=== PATIENT | female | born 1995 | race Two or more races ===

== ENCOUNTER → 2024-07-28 | Outpatient (CLI) | payer MEDICAID, SELFPAY ==
--- NOTE | 2024-07-28 13:00 | XR_ITS ---
Examination: Pelvic ultrasound, transabdominal, complete Technique: Transabdominal ultrasound of the pelvis performed using grayscale imaging Date and time of exam: July 28, 2024 1328 hours INDICATIONS: Pelvic pain beginning 2 months ago FINDINGS: Uterus 8.6 cm endometrial stripe 0.5 cm No uterine mass or intrauterine gestation Right ovary 4.2 cm arterial flow 29 x 31 x 33 mm cyst Left ovary 3.0 cm arterial flow IMPRESSION: Right ovarian simple cyst 29 x 31 x 33 mm
--- NOTE | 2024-07-28 13:00 | XR_ITS ---
Examination: Abdomen sonogram, complete Date and time of exam: July 28, 2024 1338 hours. INDICATIONS: Abdominal pain beginning 2 months ago Technique: Multiple real-time grayscale transabdominal sonographic images of the abdomen have been obtained. Findings: Contracted gallbladder Common bile duct 0.5 cm Pancreatic head 2.8 cm Aorta not enlarged Liver 19.7 cm fatty infiltration Normal hepatopedal portal venous flow Patent IVC Right kidney 10.9 cm renal cortex 1.8 cm Left kidney 10.4 cm renal cortex 2.0 cm Spleen 11.4 cm IMPRESSION: Recommend repeating the gallbladder study with fasting Moderate hepatomegaly fatty liver
== END | disposition home or self-care (01) ==
LOC: CDIM 12:48
DX: N83.291 Other ovarian cyst, right side (principal); K76.0 Fatty (change of) liver, not elsewhere classified
CPT/HCPCS: 76700; 76856

== ENCOUNTER 2024-09-02 09:43 | Emergency (ER) | payer MEDICAID, SELFPAY ==
[2024-09-02 10:21] VITALS: BP 131/76; PULSE 74; RESP 17; TEMP 36.8; O2SAT 96
[2024-09-02 10:22] VITALS: BMI 44.0
--- NOTE | 2024-09-02 10:27 | EKG_ITS ---
[facility] (Formerly [facility]) Test Date: 2024-09-02 Pat Name: PAMELA RICHARDSON Department: Room: - Gender: Female Procedure Rn: : [id number] Requested By: David Frost (RUBBER DOWN) Order Number: [id number] Reading MD: David Frost (RUBBER DOWN) Measurements Intervals [place] Rate: 78 P: 32 WA: 155 QRS: -14 QRSD: 98 T: 2 QT: 364 QTc: 417 Interpretive Statements SINUS RHYTHM LOW QRS VOLTAGE IN PRECORDIAL LEADS [QRS DEFLECTION < 1.0 mV IN CHEST LEADS] No previous ECG available for comparison /store/S0/[id number].pdf
--- NOTE | 2024-09-02 10:47 | XR_ITS ---
Examination: PA lateral chest 2 views Technique: Upright PA lateral chest 2 views Exam date and time: September 03, 2019 0503 hrs. Indications: Shortness of breath chest pain today. Findings: Normal heart size. Lungs are clear. Osseous structures are intact. Impression: No active disease.
--- NOTE | 2024-09-02 11:25 | EDNOTE_ITS ---
<Statement entered by Tessie Pritchard MD - 09/03/24 17:07> As co-signing physician, I was present and available for consult prn. I concur with the plan and care as documented by the midlevel provider. ED Chest Pain RME/HPI General Chief Complaint: Chest Pain Stated Complaint: CHEST PAIN Time Seen by Provider: 09/02/24 09:46 Arrival date/time: 09/02/24 09:43 28-year-old female presents to the emergency department today along with 2 of her children or being seen as patients as well. Patient reports that she has a mild cough and chest pain Limitations: no limitations Related Data Home Medications ?Medication ?Instructions ?Recorded ?Confirmed vits no.124-ferrous fum 1 tab PO QDAY 2 02/18/22 27 mg iron-folic acid 800 mcg tablet ( Vitamin) Previous Rx's ?Medication ?Instructions ?Recorded ibuprofen 800 mg tablet 800 mg PO TID PRN pain #30 t abs 09/02/24 Allergies Allergy/AdvReac Type Severity Reaction Status Date / Time No Known Allergies Allergy Verified 11/19/23 21:51 Review of Systems Review of Systems Systems Reviewed: All systems reviewed, normal except as documented Constitutional Constitutional: Reports system reviewed and no additional complaints, except as documented, Denies fever(s) and Denies headache(s) Eyes Eyes: Reports system reviewed and no additional complaints, except as documented and Denies blurry vision ENT Ears, Nose, Mouth, and Throat: Reports system reviewed and no additional complaints, except as documented, Denies headache(s), Denies nasal congestion and Denies nasal discharge Cardiovascular Cardiovascular: Reports system reviewed and no additional complaints, except as documented, Reports chest pain and Denies dyspnea Respiratory Respiratory: Reports system reviewed and no additional complaints, except as documented, Denies chest congestion, Reports cough and Denies dyspnea Gastrointestinal Gastrointestinal: Reports system reviewed and no additional complaints, except as documented and Denies abdominal pain Integumentary/Breasts Skin/Breast: Reports system reviewed and no additional complaints, except as doc umented and Denies rash Neurologic Neurologic: Reports system reviewed and no additional complaints, except as documented, Reports as per HPI and Denies headache(s) Past Medical History Past Medical History NEUROLOGIC: Negative Neurological Disorders CARDIAC: Negative Cardiac Disorders, Myocardial Infarction, Cardiac Arrhythmia, Atrial Fibrillation, Angina, Heart Murmur, Coronary Artery Disease, Atherosclerotic Heart Disease, Peripheral Vascular Disease, Hypercholesterolemia, Aneurysm, Congestive Heart Failure, Congenital Heart Disease, Valvular Heart Disease, Rheumatic Fever, Cardiomyopathy, Edema, Pericarditis, Cellulitis, Deep Vein Thrombosis, Hypertension, Hypotension or Varicose Veins RESPIRATORY: Negative Chronic Obstructive Pulmonary Disease (COPD) GASTROINTESTINAL: Negative Gastrointestinal Disorders, Hepatitis or Colorectal Cancer GENITOURINARY: Negative Genitourinary Disorders, Renal Disease or Prostate Cancer REPRODUCTIVE: Positive Previous Pregnancies; Negative Breast Cancer, Pelvic Inflammatory Disease or Testicular Cancer MUSCULOSKELETAL: Negative Musculoskeletal Disorders or Bone Cancer ENT: Negative Cataracts, Glaucoma, Blind, Macular Degeneration, Ear Infection, Deafness or Eye Prosthesis ENDOCRINE: Negative Endocrine Disorders, Diabetes Mellitus Type 1, Diabetes Mellitus Type 2, Hypoglycemia, Tea's Syndrome, Montrell's Disease, Hyperthyroidism, Hypothyroidism, Parathyroid Disease, Pituitary Disease, Systemic Lupus Erythematosus, Syndrome of Inappropriate Antidiuretic Hormone (SIADH), Adrenal Disease or Graves' Disease HEMATOLOGIC: Negative Blood Disorders OTHER HISTORY: Negative Hospitalization, Autoimmune Disease, Down Syndrome, Developmental Delay, Shingles, Falls, Blood Transfusions, Blood Transfusion Reaction, Anesthesia Reactions, Organ Transplant, Chemotherapy, Radiation Therapy, Hyperbaric Therapy, MRSA, VRSA, Vancomycin-Resistant Enterococci, Human Immunodeficiency Virus (HIV), Chicken Pox, Measles, Mumps, Rubella (Palauan Measles), Pertussis, Clostridium Difficile, Breast Cancer, Cervical Cancer, Colorectal Cancer, Lung Cancer, Ovarian Cancer, Prostate Cancer or Testicular Cancer Family History FAMILY HISTORY: Negative Family Psychiatric Problems, Family Respiratory Disorders, Family Cardiac Disorders, Family Gastrointestinal Problems, Family Cancer, Family Surgery or Family Anesthesia Reaction Surgical History SURGICAL: Negative Pacemaker, Section or Organ Transplant Social History SMOKING STATUS: Never smoker SECOND HAND EXPOSURE: No ED Exam General Limitations: Present no limitations General appearance: Present alert and in no apparent distress Head Head exam: Present atraumatic Eye Eye exam: Present normal appearance, PERRL and EOMI ENT ENT exam: Present normal exam, normal oropharynx and mucous membranes moist Neck Neck exam: Present normal inspection, full ROM and trachea midline Chest Chest inspection: Present normal inspection and symmetric chest wall rise Respiratory Respiratory exam: Present normal lung sounds bilaterally Cardiovascular Cardiovascular exam: Present regular rate, normal rhythm and normal heart sounds Abdominal Exam Abdominal exam: Present soft and normal bowel sounds Extremities Exam Extremities exam: Present normal inspection and full ROM Back Exam Back exam: Present normal inspection and full ROM Neurological Exam Neurological exam: Present alert, oriented X3 and CN II-XII intact Psychiatric Psychiatric exam: Present normal affect and normal mood Skin Skin exam: Present warm, dry, intact and normal color Course Quality Measures none Orders Category Date Time Status EKG (ED ONLY) *Do not use* NOW Care 09/02/24 10:27 Completed EKG (ED Only) Stat Exams 09/02/24 10:27 Draft XR chest 2V Stat Exams 09/02/24 10:47 Completed Vital Signs Vital signs: Vital Signs Temperature 98.3 F 09/02/24 10:21 Pulse Rate 74 09/02/24 10:21 Respiratory Rate 17 09/02/24 10:21 Blood Pressure 131/76 H 09/02/24 10:21 Pulse Oximetry (%) 96 09/02/24 10:21 Oxygen Delivery Method Room Air 09/02/24 10:21 O2 saturation 96% room air within normal limits Procedures -ED EKG Interpretation #1: Date of EK09/02/24 Time of EK:47 Rate: 78 Interpretation: Interpreted by me EKG Impression: Normal sinus rhythm, No acute ST-T changes, No ectopy, No ischemic changes, Normal QRS, Normal intervals and Normal axis Chest Pain MDM Narrative MDM Narrative:: 28-year-old female presents to the emergency department today along with 2 of her children or being seen as patients as well. Patient reports that she has a mild cough and chest pain On exam patient well-appearing patient does not appear ill or toxic and in no acute distress Imaging obtained no acute emergent findings noted EKG obtained no acute emergent findings noted Patient discharged home in no distress to follow-up with primary care doctor in the next 24 to 48 hours and for any worsening symptoms to return to the ER immediately Patient data External records reviewed:: [facility] previous records Clinical information provided by:: patient Social determinants that could affect healthcare access:: none Patient has the following chronic illnesses:: None How is presenting disease/condition affected by chronic disease/condition?: no chronic disease Evaluation data The following diagnostics were reviewed and interpreted by me:: radiology exam(s) and EKG tracing(s) Lab and/or radiology exams considered but not ordered:: Radiology and EKG obtained Interpretation Summary: Reviewed by me Medications / Prescriptions Medications or Prescriptions considered but not ordered:: Given Medication administrations:: Given Consultations Consultation(s) initiated? (list below): No Diagnosis Chest Pain Differential Diagnosis: pneumothorax, stable angina, atypical chest pain, costochondritis and chest pain Most likely diagnosis given after review of the tests above:: Chest pain noncardiac Admission Indicated Admission indicated?: not indicated Admission Request Was there a request for admission?: No Disposition Plan Disposition Plan: Discharge Discharge Attestation Discharge Attestation: The patient and all family members were given an opportunity to ask questions and understood the discharge instructions. Discharge instructions specifically effects, indications for sooner follow up or return to the emergency department, and the expected course of current diagnosis. Patient condition: Stable Discharge Plan Plan Patient Disposition: HOME (Self Care) Disposition Comment: Stable Prescriptions/Referrals Prescriptions/Med Rec: New ibuprofen 800 mg tablet 800 mg PO TID PRN (Reason: pain) Qty: 30 0RF No Action Vitamin 27 mg iron- 800 mcg Tablet 1 tab PO QDAY Referrals: Rainer Evans MD [Primary Care Provider] - In 1 week Problem List Clinical Impression: Atypical chest pain Patient/Caregiver Discharge Instructions Education Materials: ED Chest Pain, Noncardiac Additional Instructions: Please follow up with your primary care doctor in the next 24-48hrs for any worsening symptoms return here immediately Print Language: English Stand Alone Forms: Dang Award Info., Patient Portal Info Letter PA/COBBLER UPPER Supervising Physician PA/COBBLER UPPER Supervising Physician: Dr. PRITCHARD
[2024-09-02 12:45] VITALS: BP 135/81; PULSE 67; RESP 18; TEMP 36.8; O2SAT 100
== END 2024-09-02 13:03 | disposition home or self-care (01) ==
PROVIDERS: Emergency Provider Emergency Medicine; PCP Pediatrics
DX: R07.89 Other chest pain (principal); R06.02 Shortness of breath; R05.9 Cough, unspecified; R94.31 Abnormal electrocardiogram [ECG] [EKG]
CPT/HCPCS: 71046; 93005; 99283

== ENCOUNTER 2025-04-27 20:49 | Emergency (ER) | payer MEDICAID, SELFPAY ==
[2025-04-27 21:03] VITALS: BP 140/68; PULSE 84; RESP 19; TEMP 36.6; O2SAT 97; BMI 40.6
--- NOTE | 2025-04-27 21:09 | XR_ITS ---
Examination: Abdomen sonogram, Limited Date and time of exam: April 27, 2025, 10 0 7:00 p.m. INDICATIONS: Abdominal pain beginning 6 days ago Technique: Real-time woody scale transabdominal sonographic images of the upper abdomen obtained. Findings: Contracted gallbladder no stones Common bile duct 0.3 cm Pancreatic head 3.8 cm Liver 17.0 cm fatty infiltration Normal hepatopetal portal venous flow Patent IVC IMPRESSION: Contracted gallbladder, no gallstones Normal common bile duct Prominent pancreatic head, clinical correlation advised
[2025-04-27 21:46] LABS: Basophils # (Auto) 0.0 Thou/mm3 (0.0-0.2); Basophils % (Auto) 0 % (0-2.5); Eosinophils # (Auto) 0.1 Thou/mm3 (0.0-0.5); Eosinophils % (Auto) 1 % (0-10); Hematocrit 41.5 % (36.0-46.0); Hemoglobin 14.2 g/dL (12.0-16.0); Immature Granulocytes Auto 0.04 Thou/mm3 (0.00-0.00); Lymphocytes # (Auto) 5.2 Thou/mm3 (1.0-4.8); Lymphocytes % (Auto) 38 % (10-50); Mean Corpuscular HGB Conc 34.2 g/dl (31.0-37.0); Mean Corpuscular Hemoglobin 29.5 pg (25.0-35.0); Mean Corpuscular Volume 86 fL (80-100); Monocytes # (Auto) 0.9 Thou/mm3 (0.0-0.8); Monocytes % (Auto) 7 % (0-12); Neutrophils # (Auto) 7.2 Thou/mm3 (1.8-7.7); Neutrophils % (Auto) 54 % (37-80); Nucleated Red Blood Cell # 0.00 Thou/mm3 (0.00-0.00); Nucleated Red Blood Cell % 0 /100 WBC (0); Platelet Count 330 Thou/mm3 (140-440); RDW Standard Deviation 37.3 fL (36.4-46.3); Red Blood Count 4.82 Miln/mm3 (4.00-5.20); White Blood Count 13.4 Thou/mm3 (3.6-11.0)
[2025-04-27 22:02] LABS: Collection Type, Urine Clean Catch
[2025-04-27 22:09] LABS: Alanine Aminotransferase 21 U/L (10-49); Albumin, Serum 4.7 gm/dL (3.5-5.0); Albumin/Globulin Ratio 1.5 (1.2-2.2); Alkaline Phosphatase 107 U/L (46-116); Anion Gap 9 (7-16); Aspartate Amino Transferase 25 U/L (0-34); BUN/Creatinine Ratio 13 Ratio (12-20); Bilirubin,Total 0.7 mg/dL (0.3-1.2); Blood Urea Nitrogen 9 mg/dL (9-23); Calcium 9.5 mg/dL (8.3-10.6); Calcium (Corrected) 9.5 mg/dL (8.5-10.1); Carbon Dioxide 26.6 mMol/L (20.0-31.0); Chloride 107 mMol/L (98-107); Creatinine (Component) 0.7 mg/dL (0.6-1.3); Estimated Creatinine Clearance 131.7 mL/min (>60); Globulin 3.1 gm/dL (2.3-3.5); Glucose 120 mg/dL (74-106); Lipase 32 U/L (12-53); Osmolality,Calculated 284 (275-295); Potassium 3.7 mMol/L (3.4-5.1); Sodium 143 mMol/L (136-145); Total Protein 7.8 gm/dL (5.7-8.2); eGFR > 60 See Note
[2025-04-27 22:09] LABS: HCG Qualitative,Urine Negative
[2025-04-27 22:11] LABS: Amorphous Crystals,Urine Present (Absent); Bacteria,Urine Rare; Bilirubin,Urine Negative (Negative); Blood,Urine Trace (Negative); Clarity,Urine Clear (Clear/Hazy); Color,Urine Yellow (Lt Yel-Yel); Glucose, Urine Negative (Negative); Ketones,Urine Negative (Negative); Leukocyte Esterase,Urine Positive (Negative); Nitrite,Urine Negative (Negative); PH,Urine 5.5 (5.0-7.0); Protein,Urine Negative (Neg - Trace); RBC,Urine 3 /hpf (0-3); Specific Gravity,Urine 1.031 (1.001-1.035); Squamous Epithelial Cell,Urine 3 /hpf (0-5); Urobilinogen,Urine Negative mg/dL (0.0-1.0); WBC,Urine 1 /hpf (0-5)
[2025-04-27 23:31] LABS: Amylase 32 U/L (30-118)
--- NOTE | 2025-04-28 00:06 | PD.EDABDPN ---
ED Abdominal Pain RME/HPI General Chief Complaint: Abdominal Pain Stated complaint: RIGHT UPPER ABD PAIN Time seen by provider: 04/27/25 21:04 Arrival date/time: 04/27/25 20:49 This is a case of 29-year-old female with history of gastritis and fatty liver and diabetes came in in the emergency room due to right upper abdominal pain radiating to the right flank for 5 days associated with nausea vomiting no injury noted no trauma persistence of the symptoms this patient decided to sought consult here in the emergency room Limitations: no limitations Related Data Home Medications ?Medication ?Instructions ?Recorded ?Confirmed vits no.[id number]-ferrous fum 1 tab PO QDAY 02/18/22 02/18/22 27 mg iron-folic acid 800 mcg tablet ( Vitamin) Previous Rx's ?Medication ?Instructions ?Recorded ibuprofen 800 mg tablet 800 mg PO TID PRN pain #30 tabs 09/02/24 cephalexin 500 mg capsule 500 mg PO TID #30 caps 04/28/25 hydrocodone 5 mg-acetaminophen 325 1 tab PO Q6H PRN pain #12 tabs 04/28/25 mg tablet ondansetron 4 mg disintegrating 4 mg PO Q8H #20 tabs 04/28/25 tablet Allergies Allergy/AdvReac Type Severity Reaction Status Date / Time No Known Allergies Allergy Verified 04/27/25 20:50 Review of Systems Review of Systems Systems Reviewed: All systems reviewed, normal except as documented Constitutional Constitutional: Reports system reviewed and no additional complaints, except as documented and Reports as per HPI ENT Ears, Nose, Mouth, and Throat: Denies dysphagia and Denies odynophagia Cardiovascular Cardiovascular: Reports system reviewed and no additional complaints, except as documented and Reports as per HPI Respiratory Respiratory: Reports system reviewed and no additional complaints, except as documented and Reports as per HPI Gastrointestinal Gastrointestinal: Reports system reviewed and no additional complaints, except as documented, Reports as per HPI, Reports abdominal pain, Denies belching, Denies bloating, Denies change in bowel habits, Denies change in stool character, Denies coffee ground emesis, Denies constipation, Denies cramping, Denies diarrhea, Denies dyspepsia, Denies dysphagia, Denies early satiety, Denies excessive flatus, Denies fecal incontinence, Denies heartburn, Denies hematemesis, Denies hematochezia, Denies loose stools, Denies melena, Reports nausea, Denies odynophagia, Denies tenesmus and Reports vomiting Neurologic Neurologic: Reports system reviewed and no additional complaints, except as documented and Reports as per HPI Past Medical History Past Medical History NEUROLOGIC: Negative Neurological Disorders CARDIAC: Negative Cardiac Disorders, Myocardial Infarction, Cardiac Arrhythmia, Atrial Fibrillation, Angina, Heart Murmur, Coronary Artery Disease, Atherosclerotic Heart Disease, Peripheral Vascular Disease, Hypercholesterolemia, Aneurysm, Congestive Heart Failure, Congenital Heart Disease, Valvular Heart Disease, Rheumatic Fever, Cardiomyopathy, Edema, Pericarditis, Cellulitis, Deep Vein Thrombosis, Hypertension, Hypotension or Varicose Veins RESPIRATORY: Negative Chronic Obstructive Pulmonary Disease (COPD) GASTROINTESTINAL: Negative Gastrointestinal Disorders, Hepatitis or Colorectal Cancer GENITOURINARY: Negative Genitourinary Disorders, Renal Disease or Prostate Cancer REPRODUCTIVE: Positive Previous Pregnancies; Negative Breast Cancer, Pelvic Inflammatory Disease or Testicular Cancer MUSCULOSKELETAL: Negative Musculoskeletal Disorders or Bone Cancer ENT: Negative Cataracts, Glaucoma, Blind, Macular Degeneration, Ear Infection, Deafness or Eye Prosthesis ENDOCRINE: Negative Endocrine Disorders, Diabetes Mellitus Type 1, Diabetes Mellitus Type 2, Hypoglycemia, [place]'s Syndrome, [place]'s Disease, Hyperthyroidism, Hypothyroidism, Parathyroid Disease, Pituitary Disease, Systemic Lupus Erythematosus, Syndrome of Inappropriate Antidiuretic Hormone (SIADH), Adrenal Disease or Graves' Disease HEMATOLOGIC: Negative Blood Disorders OTHER HISTORY: Negative Hospitalization, Autoimmune Disease, Down Syndrome, Developmental Delay, Shingles, Falls, Blood Transfusions, Blood Transfusion Reaction, Anesthesia Reactions, Organ Transplant, Chemotherapy, Radiation Therapy, Hyperbaric Therapy, MRSA, VRSA, Vancomycin-Resistant Enterococci, Human Immunodeficiency Virus (HIV), Chicken Pox, Measles, Mumps, Rubella (Vietnamese Measles), Pertussis, Clostridium Difficile, Breast Cancer, Cervical Cancer, Colorectal Cancer, Lung Cancer, Ovarian Cancer, Prostate Cancer or Testicular Cancer Family History FAMILY HISTORY: Negative Family Psychiatric Problems, Family Respiratory Disorders, Family Cardiac Disorders, Family Gastrointestinal Problems, Family Cancer, Family Surgery or Family Anesthesia Reaction Surgical History SURGICAL: Negative Pacemaker, Section or Organ Transplant Social History SMOKING STATUS: Never smoker SECOND HAND EXPOSURE: No ED Exam General Limitations: Present no limitations General appearance: Present alert, in no apparent distress and other (Patient is awake alert oriented not in distress nontoxic looking well-hydrated well-nourished) Head Head exam: Present atraumatic, normocephalic and normal inspection Eye Eye exam: Present normal appearance, PERRL and EOMI ENT ENT exam: Present normal exam, normal oropharynx and mucous membranes moist Neck Neck exam: Present normal inspection, full ROM and trachea midline; Absent tenderness, meningismus, lymphadenopathy or thyromegaly Chest Chest inspection: Present normal inspection and symmetric chest wall rise; Absent tenderness Respiratory Respiratory exam: Present normal lung sounds bilaterally and other (No rhonchi no rales); Absent respiratory distress, wheezes, stridor, accessory muscle use or prolonged expiratory phase Cardiovascular Cardiovascular exam: Present regular rate, normal rhythm and normal heart sounds; Absent bradycardia, tachycardia, irregular rhythm, systolic murmur, diastolic murmur or clicks Abdominal Exam Abdominal exam: Present soft, tenderness (Mild tenderness on the right upper quadrant right flank but no CVA tenderness bladder is not distended not tender) and normal bowel sounds; Absent distention, guarding, rebound, rigidity, diminished bowel sounds, hyperactive bowel sounds, hypoactive bowel sounds, organomegaly, psoas sign, obturator sign, heel tap sign, Pandya's sign, Rovsing's sign, tenderness at McBurney's Point or ascites Extremities Exam Extremities exam: Present normal inspection and full ROM Back Exam Back exam: Present normal inspection and full ROM Neurological Exam Neurological exam: Present alert, oriented X3, CN II-XII intact, normal gait and reflexes normal; Absent motor sensory deficit Psychiatric Psychiatric exam: Present normal affect and normal mood Skin Skin exam: Present warm, dry, intact, normal color and other (Excellent skin turgor) Course Quality Measures none Orders Category Date Time Status US gall bladder Stat Exams 04/27/25 21:09 Completed Amylase Stat Lab 04/27/25 21:34 Completed CBC Stat Lab 04/27/25 21:34 Completed Comprehensive Metabolic Panel Stat Lab 04/27/25 21:34 Completed HCG Qualitative,Urine Stat Lab 04/27/25 21:50 Completed Lipase Stat Lab 04/27/25 21:34 Completed Urinalysis Stat Lab 04/27/25 21:50 Completed HYDROcodone*/APAP 5/325 [[place] 5/325] Med 04/27/25 23:58 Discontinued 1 tab PO X1 ONE Ondansetron Odt [Zofran Odt] Med 04/27/25 23:58 Discontinued 4 mg PO X1 ONE Vital Signs Vital signs: Vital Signs Temperature 97.8 F 04/27/25 21:03 Pulse Rate 84 04/27/25 21:03 Respiratory Rate 19 04/27/25 21:03 Blood Pressure 140/68 H 04/27/25 21:03 Pulse Oximetry (%) 97 04/27/25 21:03 Oxygen Delivery Method Room Air 04/27/25 21:03 Oxygen saturation is 97% in room air Abdominal Pain MDM MDM Narrative MDM Narrative:: This is a case of 29-year-old female with history of gastritis and fatty liver and diabetes came in in the emergency room due to right upper abdominal pain radiating to the right flank for 5 days associated with nausea vomiting no injury noted no trauma persistence of the symptoms this patient decided to sought consult here in the emergency room physical examination patient is awake alert oriented not in distress nontoxic looking moderate tenderness on the right upper quadrant and right flank but no CVA tenderness no guarding no rebound no rigidity negative psoas negative straight or negative Rovsing's negative Ovide's negative obesity negative CVA tenderness excellent skin turgor the rest of the physical examination neurological exam is normal and unremarkable blood test showed leukocytosis with WBC of 13 to no anemia kidney and liver function is normal lipase and amylase is normal urinalysis showed WBCs and urine suggestive of urinary tract infection ultrasound of the gallbladder were normal based on my physical examination and history patient abdominal pain is due to urinary tract patient was discharged with cephalexin for UTI [place] for pain Zofran for nausea vomiting for any worsening symptoms or any emergent concern return precaution in the ER is advised she will also follow-up with PCP in 2 days for reevaluation Patient was discharged with comfortable condition walking with stable gait. Patient verbalized no further complains explained diagnosis and answered patient question. Patient is comfortable with the proposed management plan including the need to follow up with his/her primary care physician and any specialist if applicable Discussed patient for any urgent condition or worsening sx, He/She needed to go to emergency room immediately or call 911. Patient acknowledge the responsibility to follow up as instructed and to monitor her/his symptoms. For any persistence of the symptoms for more than 3-5 days return precaution advised. Discussed the result of the test and was given printed discharge instruction Patient data External records reviewed:: [facility] previous records Clinical information provided by:: patient Social determinants that could affect healthcare access:: none Patient has the following chronic illnesses:: None How is presenting disease/condition affected by chronic disease/condition?: no chronic disease Evaluation data The following diagnostics were reviewed and interpreted by me:: lab results and radiology exam(s) Lab and/or radiology exams considered but not ordered:: Reviewed Interpretation Summary: Reviewed Medications / Prescriptions Medications or Prescriptions considered but not ordered:: Given Medication administrations:: Medication Administration History Discontinued Medications Hydrocodone Bitart/Acetaminophen (Hydrocodone/[place] 5/325 Tablet) 1 tab PO X1 ONE Stop: 04/27/25 23:59 Ondansetron HCl (Ondansetron Odt 4 Mg Tabrap) 4 mg PO X1 ONE; Protocol Stop: 04/27/25 23:59 Given Consultations Consultation(s) initiated? (list below): No Diagnosis Differential diagnosis abdominal pain: abdominal pain, calculus of kidney, gastroenteritis, pancreatitis and other (Cholelithiasis) Most likely diagnosis given after review of the tests above:: Urinary tract infection Admission Indicated Admission indicated?: not indicated Explain why admission is indicated or not indicated:: not indicated Admission Request Was there a request for admission?: No Admission Attestation Admission request attestation: not indicated Disposition Plan Disposition Plan: Discharge Discharge Attestation Discharge Attestation: The patient and all family members were given an opportunity to ask questions and understood the discharge instructions. Discharge instructions specifically effects, indications for sooner follow up or return to the emergency department, and the expected course of current diagnosis. Patient condition: Stable Discharge Plan Plan Patient Disposition: HOME (Self Care) Patient condition on transfer: Stable Prescriptions/Referrals Prescriptions/Med Rec: New cephalexin 500 mg capsule 500 mg PO TID Qty: 30 0RF ondansetron 4 mg tablet,disintegrating 4 mg PO Q8H Qty: 20 0RF hydrocodone-acetaminophen 5-325 mg tablet 1 tab PO Q6H MDD max 4 tabs per day PRN (Reason: pain) Qty: 12 0RF No Action Vitamin 27 mg iron- 800 mcg Tablet 1 tab PO QDAY ibuprofen 800 mg tablet 800 mg PO TID PRN (Reason: pain) Qty: 30 0RF Referrals: Dionne Connolly NP [Primary Care Provider] - In 1 week Problem List Clinical Impression: Abdominal pain, Urinary tract infection Patient/Caregiver Discharge Instructions Education Materials: Abdominal Pain, Urinary Tract Infections in Women Additional Instructions: Follow-up with your primary care physician in 2 days for reevaluation regarding persistent worsening symptoms or any emergent concern call 911 or go to the nearest emergency room take your medication as directed finish the course of antibiotic increase water intake keep hydrated Pedialyte Gatorade for hydration is advsied Print Language: Portuguese Stand Alone Forms: Dang Award Info., Patient Portal Info Letter 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
[2025-04-28] MEDS: HYDROcodone/APAP 5/325 TABLET 1 TAB PO (00:25)
[2025-04-28] MEDS: ONDANSETRON ODT 4 MG TABRAP PO (00:25)
[2025-04-28 00:26] VITALS: RESP 16
[2025-04-28 01:07] LABS: Path Review Blood Smear Sent to Pathologist
== END 2025-04-28 00:27 | disposition home or self-care (01) ==
PROVIDERS: Nurse Practitioner Family; Emergency Provider Emergency Medicine; PCP Nurse Practitioner Family
DX: N39.0 Urinary tract infection, site not specified (principal); R10.11 Right upper quadrant pain; R11.2 Nausea with vomiting, unspecified
CPT/HCPCS: 36415; 76705; 80053; 81001; 81025; 82150; 83690; 85025; 99283; Q0162; A9270

== ENCOUNTER 2025-04-30 08:42 | Emergency (ER) | payer MEDICAID, SELFPAY ==
[2025-04-30 08:57] VITALS: BP 122/83; PULSE 85; RESP 18; TEMP 36.9; O2SAT 96
--- NOTE | 2025-04-30 09:01 | XR_ITS ---
EXAMINATION: PA lateral chest 2 views TECHNIQUE: Upright PA lateral chest 2 views Date and time: April 30, 2025, 0914 hours INDICATIONS: Coughing congestion 3 days. FINDINGS: Normal heart size. Lungs are clear. Osseous structures intact. IMPRESSION: No active disease
[2025-04-30 09:30] LABS: Strep A Rapid Negative (Negative)
[2025-04-30 09:30] LABS: COVID-19 Antigen (In-House) Negative (Negative)
--- NOTE | 2025-04-30 10:57 | PD.EDURI ---
Upper Respiratory Inf. RME/HPI General Chief Complaint: Flu Like Symptoms Stated Complaint: cough Time Seen by Provider: 04/30/25 08:43 Arrival date/time: 04/30/25 08:42 29-year-old female presents to the Emergency Department for complaint of sore throat cough and congestion ongoing for last couple of days patient reports no chance of Limitations: no limitations Related Data Home Medications ?Medication ?Instructions ?Recorded ?Confirmed vits no.124-ferrous fum 1 tab PO QDAY 02/18/22 02/18/22 27 mg iron-folic acid 800 mcg tablet ( Vitamin) Previous Rx's ?Medication ?Instructions ?Recorded ibuprofen 800 mg tablet 800 mg PO TID PRN pain #30 tabs 09/02/24 cephalexin 500 mg capsule 500 mg PO TID #30 caps 04/28/25 hydrocodone 5 mg-acetaminophen 325 1 tab PO Q6H PRN pain #12 tabs 04/28/25 mg tablet ondansetron 4 mg disintegrating 4 mg PO Q8H #20 tabs 04/28/25 tablet Ventolin HFA 90 mcg/actuation 2 puff inhalation Q6H PRN 04/30/25 aerosol inhaler (albuterol sulfate) shortness of breath or wheezing #18 grams benzonatate 100 mg capsule 100 mg PO TID #14 caps 04/30/25 prednisone 10 mg tablet 30 mg (3 x 10 mg) PO BID 3 days 04/30/25 #18 tabs Allergies Allergy/AdvReac Type Severity Reaction Status Date / Time No Known Allergies Allergy Verified 04/30/25 08:45 Review of Systems Review of Systems Systems Reviewed: All systems reviewed, normal except as documented Constitutional Constitutional: Reports system reviewed and no additional complaints, except as documented, Denies fever(s) and Denies headache(s) Eyes Eyes: Reports system reviewed and no additional complaints, except as documented and Denies blurry vision ENT Ears, Nose, Mouth, and Throat: Reports system reviewed and no additional complaints, except as documented, Denies headache(s), Denies nasal congestion, Denies nasal discharge and Reports sore throat Cardiovascular Cardiovascular: Reports system reviewed and no additional complaints, except as documented, Denies chest pain and Denies dyspnea Respiratory Respiratory: Reports system reviewed and no additional complaints, except as documented, Reports chest congestion, Reports cough and Denies dyspnea Gastrointestinal Gastrointestinal: Reports system reviewed and no additional complaints, except as documented and Denies abdominal pain Integumentary/Breasts Skin/Breast: Reports system reviewed and no additional complaints, except as documented and Denies rash Neurologic Neurologic: Reports system reviewed and no additional complaints, except as documented, Reports as per HPI and Denies headache(s) Past Medical History Past Medical History NEUROLOGIC: Negative Neurological Disorders CARDIAC: Negative Cardiac Disorders, Myocardial Infarction, Cardiac Arrhythmia, Atrial Fibrillation, Angina, Heart Murmur, Coronary Artery Disease, Atherosclerotic Heart Disease, Peripheral Vascular Disease, Hypercholesterolemia, Aneurysm, Congestive Heart Failure, Congenital Heart Disease, Valvular Heart Disease, Rheumatic Fever, Cardiomyopathy, Edema, Pericarditis, Cellulitis, Deep Vein Thrombosis, Hypertension, Hypotension or Varicose Veins RESPIRATORY: Negative Chronic Obstructive Pulmonary Disease (COPD) GASTROINTESTINAL: Negative Gastrointestinal Disorders, Hepatitis or Colorectal Cancer GENITOURINARY: Negative Genitourinary Disorders, Renal Disease or Prostate Cancer REPRODUCTIVE: Positive Previous Pregnancies; Negative Breast Cancer, Pelvic Inflammatory Disease or Testicular Cancer MUSCULOSKELETAL: Negative Musculoskeletal Disorders or Bone Cancer ENT: Negative Cataracts, Glaucoma, Blind, Macular Degeneration, Ear Infection, Deafness or Eye Prosthesis ENDOCRINE: Negative Endocrine Disorders, Diabetes Mellitus Type 1, Diabetes Mellitus Type 2, Hypoglycemia, [place]'s Syndrome, [place]'s Disease, Hyperthyroidism, Hypothyroidism, Parathyroid Disease, Pituitary Disease, Systemic Lupus Erythematosus, Syndrome of Inappropriate Antidiuretic Hormone (SIADH), Adrenal Disease or Graves' Disease HEMATOLOGIC: Negative Blood Disorders OTHER HISTORY: Negative Hospitalization, Autoimmune Disease, Down Syndrome, Developmental Delay, Shingles, Falls, Blood Transfusions, Blood Transfusion Reaction, Anesthesia Reactions, Organ Transplant, Chemotherapy, Radiation Therapy, Hyperbaric Therapy, MRSA, VRSA, Vancomycin-Resistant Enterococci, Human Immunodeficiency Virus (HIV), Chicken Pox, Measles, Mumps, Rubella (N[place]ali Measles), Pertussis, Clostridium Difficile, Breast Cancer, Cervical Cancer, Colorectal Cancer, Lung Cancer, Ovarian Cancer, Prostate Cancer or Testicular Cancer Family History FAMILY HISTORY: Negative Family Psychiatric Problems, Family Respiratory Disorders, Family Cardiac Disorders, Family Gastrointestinal Problems, Family Cancer, Family Surgery or Family Anesthesia Reaction Surgical History SURGICAL: Negative Pacemaker, Section or Organ Transplant Social History SMOKING STATUS: Never smoker SECOND HAND EXPOSURE: No ED Exam General Limitations: Present no limitations General appearance: Present alert and in no apparent distress Head Head exam: Present atraumatic, normocephalic and normal inspection Eye Eye exam: Present normal appearance, PERRL and EOMI; Absent conjunctival injection ENT ENT exam: Present normal exam, normal oropharynx and mucous membranes moist Neck Neck exam: Present normal inspection, full ROM and trachea midline Chest Chest inspection: Present normal inspection and symmetric chest wall rise Respiratory Respiratory exam: Present normal lung sounds bilaterally; Absent respiratory distress Cardiovascular Cardiovascular exam: Present regular rate, normal rhythm and normal heart sounds Abdominal Exam Abdominal exam: Present soft and normal bowel sounds; Absent distention, tenderness, guarding, rebound or rigidity Extremities Exam Extremities exam: Present normal inspection and full ROM Back Exam Back exam: Present normal inspection and full ROM Neurological Exam Neurological exam: Present alert, oriented X3 and CN II-XII intact Psychiatric Psychiatric exam: Present normal affect and normal mood Skin Skin exam: Present warm, dry, intact and normal color Course Quality Measures none Orders Category Date Time Status XR chest 2V Stat Exams 04/30/25 09:01 Completed COVID-19 Antigen (In-House) Stat Lab 04/30/25 09:04 Completed Strep A Rapid Stat Lab 04/30/25 09:06 Completed Vital Signs Vital signs: Vital Signs Temperature 98.5 F 04/30/25 08:57 Pulse Rate 85 04/30/25 08:57 Respiratory Rate 18 04/30/25 08:57 Blood Pressure 122/83 04/30/25 08:57 Pulse Oximetry (%) 96 04/30/25 08:57 Oxygen Delivery Method Room Air 04/30/25 08:57 O2 saturation 96% room air with normal Upper Respiratory Infection MDM Narrative MDM Narrative:: 29-year-old female presents to the Emergency Department for complaint of sore throat cough and congestion ongoing for last couple of days patient reports no chance of Clinically patient well-appearing does not appear ill or toxic no distress Lab work and imaging obtained no acute emergent findings noted On auscultation patient's lungs are clear to auscultation Patient discharged home in no distress to follow-up with primary care doctor in the next 24 to 48 hours and for any worsening symptoms to return to the ER immediately Patient data External records reviewed:: [facility] previous records Clinical information provided by:: patient Social determinants that could affect healthcare access:: none Patient has the following chronic illnesses:: None How is presenting disease/condition affected by chronic disease/condition?: no chronic disease Evaluation data The following diagnostics were reviewed and interpreted by me:: lab results and radiology exam(s) Lab and/or radiology exams considered but not ordered:: Labs and radiology obtained Interpretation Summary: Reviewed by me Medications / Prescriptions Medications or Prescriptions considered but not ordered:: Given Medication administrations:: Given Consultations Consultation(s) initiated? (list below): No Diagnosis Upper Respiratory Differential Diagnosis: upper respiratory infection, sinusitis, viral infection and bronchitis Most likely diagnosis given after review of the tests above:: URI Admission Indicated Admission indicated?: not indicated Admission Request Was there a request for admission?: No Disposition Plan Disposition Plan: Discharge Discharge Attestation Discharge Attestation: The patient and all family members were given an opportunity to ask questions and understood the discharge instructions. Discharge instructions specifically effects, indications for sooner follow up or return to the emergency department, and the expected course of current diagnosis. Patient condition: Stable Discharge Plan Plan Patient Disposition: HOME (Self Care) Discharge Disposition comment: Stable Prescriptions/Referrals Prescriptions/Med Rec: New prednisone 10 mg tablet 30 mg PO BID 3 Days Qty: 18 0RF albuterol sulfate [Ventolin HFA] 90 mcg/actuation HFA aerosol inhaler 2 puff inhalation Q6H PRN (Reason: shortness of breath or wheezing) Qty: 18 0RF benzonatate 100 mg capsule 100 mg PO TID Qty: 14 0RF No Action Vitamin 27 mg iron- 800 mcg Tablet 1 tab PO QDAY ibuprofen 800 mg tablet 800 mg PO TID PRN (Reason: pain) Qty: 30 0RF cephalexin 500 mg capsule 500 mg PO TID Qty: 30 0RF ondansetron 4 mg tablet,disintegrating 4 mg PO Q8H Qty: 20 0RF hydrocodone-acetaminophen 5-325 mg tablet 1 tab PO Q6H MDD max 4 tabs per day PRN (Reason: pain) Qty: 12 0RF Referrals: Jacquie Finney FNP-C [Primary Care Provider] - In 1 week Problem List Clinical Impression: URI (upper respiratory infection) Patient/Caregiver Discharge Instructions Education Materials: ED URI, Viral, No Abx (Adult) Additional Instructions: Please follow up with your primary care doctor in the next 24-48hrs for any worsening symptoms return here immediately Print Language: Andorran Stand Alone Forms: Dang Award Info., Patient Portal Info Letter PA/CONSUMER [employer]RONIC RETAIL SPECIALIST Supervising Physician PA/JULISSA Supervising Physician: Dr. clayton
== END 2025-04-30 11:18 | disposition home or self-care (01) ==
PROVIDERS: Emergency Provider Nurse Practitioner Primary Care
DX: J06.9 Acute upper respiratory infection, unspecified (principal)
CPT/HCPCS: 71046; 87651; 87811; 99282

== ENCOUNTER → 2025-04-30 | Outpatient (CLI) | payer MEDICAID, SELFPAY ==
--- NOTE | 2025-04-30 16:00 | XR_ITS ---
Examination: Pelvic ultrasound, transabdominal, complete Technique: Transabdominal ultrasound of the pelvis performed using grayscale imaging Date and time of exam: April 30, 2025, 1600 hours INDICATIONS: Pelvic pain beginning 3 months ago FINDINGS: Uterus 7.3 cm endometrial stripe 0.8 cm No uterine mass or intrauterine gestation Right ovary 1.9 cm arterial flow Left ovary 2.3 cm arterial flow No fluid in the cul-de-sac IMPRESSION: Negative study
== END | disposition home or self-care (01) ==
DX: R10.20 Pelvic and perineal pain unspecified side (principal)
CPT/HCPCS: 76856

== ENCOUNTER 2025-05-27 16:48 | Emergency (ER) | payer MEDICAID, SELFPAY ==
--- NOTE | 2025-05-27 17:12 | XR_ITS ---
EXAMINATION: PA lateral chest 2 views TECHNIQUE: Upright PA lateral chest 2 views Date and time: May 27, 2025, 1727 hours INDICATION: Chest pain beginning 2 days ago. FINDINGS: Normal heart size Lungs are clear. Intact osseous structures IMPRESSION: No active disease
--- NOTE | 2025-05-27 17:12 | EKG_ITS ---
[facility] Test Date: 2025-05-27 Pat Name: PAMELA RICHARDSON Department: Room: - Gender: Female [employer]: : 1995 Requested By: David Frost (TRANSFER WORKER) Order Number: [id number] Reading MD: David Frost (TRANSFER WORKER) Measurements Intervals [place] Rate: 80 P: 52 WY: 158 QRS: 7 QRSD: 94 T: 30 QT: 373 QTc: 432 Interpretive Statements SINUS RHYTHM INCOMPLETE RIGHT BUNDLE BRANCH BLOCK [90+ ms QRS DURATION, TERMINAL R IN V1/V2, 40+ ms S IN I/aVL/V4/V5/V6] Compared to ECG 09/02/2024 10:47:58 Incomplete right bundle-branch block now present /store/S0/[id number]/ecg/[id number].pdf
--- NOTE | 2025-05-27 17:13 | PD.EDRME ---
Rapid Medical Screening Exam RME Arrival date/time: 05/27/25 16:48 29-year-old female presents to the emergency department for complaints of chest pain Chief Complaint: Chest Pain Vital signs reviewed by provider: Yes Exam: On exam well-appearing does not appear ill or toxic no acute stress Clinical Impression: Lab work and imaging and EKG obtained
[2025-05-27 17:14] VITALS: BP 137/70; PULSE 87; RESP 20; TEMP 36.7; O2SAT 98; BMI 39.4
[2025-05-27 17:48] LABS: Basophils # (Auto) 0.0 Thou/mm3 (0.0-0.2); Basophils % (Auto) 0 % (0-2.5); Eosinophils # (Auto) 0.1 Thou/mm3 (0.0-0.5); Eosinophils % (Auto) 1 % (0-10); Hematocrit 40.2 % (36.0-46.0); Hemoglobin 13.7 g/dL (12.0-16.0); Immature Granulocytes Auto 0.01 Thou/mm3 (0.00-0.00); Lymphocytes # (Auto) 4.3 Thou/mm3 (1.0-4.8); Lymphocytes % (Auto) 41 % (10-50); Mean Corpuscular HGB Conc 34.1 g/dl (31.0-37.0); Mean Corpuscular Hemoglobin 29.1 pg (25.0-35.0); Mean Corpuscular Volume 86 fL (80-100); Monocytes # (Auto) 0.7 Thou/mm3 (0.0-0.8); Monocytes % (Auto) 7 % (0-12); Neutrophils # (Auto) 5.3 Thou/mm3 (1.8-7.7); Neutrophils % (Auto) 51 % (37-80); Nucleated Red Blood Cell # 0.00 Thou/mm3 (0.00-0.00); Nucleated Red Blood Cell % 0 /100 WBC (0); Platelet Count 312 Thou/mm3 (140-440); RDW Standard Deviation 37.0 fL (36.4-46.3); Red Blood Count 4.70 Miln/mm3 (4.00-5.20); White Blood Count 10.4 Thou/mm3 (3.6-11.0)
[2025-05-27 18:07] LABS: Alanine Aminotransferase 15 U/L (10-49); Albumin, Serum 4.5 gm/dL (3.5-5.0); Albumin/Globulin Ratio 1.6 (1.2-2.2); Alkaline Phosphatase 112 U/L (46-116); Anion Gap 8 (7-16); Aspartate Amino Transferase 19 U/L (0-34); BUN/Creatinine Ratio 9 Ratio (12-20); Bilirubin,Total 0.7 mg/dL (0.3-1.2); Blood Urea Nitrogen 7 mg/dL (9-23); Calcium 9.2 mg/dL (8.3-10.6); Calcium (Corrected) 9.2 mg/dL (8.5-10.1); Carbon Dioxide 26.6 mMol/L (20.0-31.0); Chloride 104 mMol/L (98-107); Creatinine (Component) 0.8 mg/dL (0.6-1.3); Estimated Creatinine Clearance 114.4 mL/min (>60); Globulin 2.8 gm/dL (2.3-3.5); Glucose 141 mg/dL (74-106); Osmolality,Calculated 277 (275-295); Potassium 3.9 mMol/L (3.4-5.1); Sodium 139 mMol/L (136-145); Total Protein 7.3 gm/dL (5.7-8.2); Troponin I < 0.020 ng/mL (0.0-0.045); eGFR > 60 See Note
[2025-05-27 18:25] LABS: HCG,Qualitative Serum Positive
--- NOTE | 2025-05-27 19:22 | EDNOTE_ITS ---
ED Chest Pain RME/HPI General Chief Complaint: Chest Pain Stated Complaint: LEFT CHEST/BACK PAIN SENT W ABN EKG Time Seen by Provider: 05/27/25 17:54 Arrival date/time: 05/27/25 16:48 RME / HPI RME / HPI narrative: 05/27/25 16:48 29-year-old female presents to the emergency department for complaints of chest pain --------- Dr. Stroud?s Main ED Evaluation: 29yo female presents to the ED for a chief complaint of left-sided chest pain x last night. No radiation or migration. Patient denies any cough, fever, chills, N/V, dizziness, lightheadedness, or any other associated symptoms. LMP was 04/30/25. NKA. Related Data Home Medications ?Medication ?Instructions ?Recorded ?Confirmed vits no.[id number]-ferrous fum 1 tab PO QDAY 2 02/18/22 27 mg iron-folic acid 800 mcg tablet ( Vitamin) Previous Rx's ?Medication ?Instructions ?Recorded ibuprofen 800 mg tablet 800 mg PO TID PRN pain #30 t abs 09/02/24 cephalexin 500 mg capsule 500 mg PO TID #30 caps 04/28 hydrocodone 5 mg-acetaminophen 325 1 tab PO Q6H PRN pa in #12 tabs 04/28/25 mg tablet ondansetron 4 mg disintegrating 4 mg PO Q8H #20 tabs 1 06/29/24 tablet Ventolin HFA 90 mcg/actuation 2 puff inhalation Q6H [place] N 04/30/25 aerosol inhaler (albuterol sulfate) shortness of breat h or wheezing #18 grams benzonatate 100 mg capsule 100 mg PO TID #14 caps 09/19 Allergies Allergy/AdvReac Type Severity Reaction Status Date / Time No Known Allergies Allergy Verified 05/27/25 16:51 Review of Systems Review of Systems Systems Reviewed: All systems reviewed, normal except as documented Past Medical History Past Medical History NEUROLOGIC: Negative Neurological Disorders CARDIAC: Negative Cardiac Disorders, Myocardial Infarction, Cardiac Arrhythmia, Atrial Fibrillation, Angina, Heart Murmur, Coronary Artery Disease, Atherosclerotic Heart Disease, Peripheral Vascular Disease, Hypercholesterolemia, Aneurysm, Congestive Heart Failure, Congenital Heart Disease, Valvular Heart Disease, Rheumatic Fever, Cardiomyopathy, Edema, Pericarditis, Cellulitis, Deep Vein Thrombosis, Hypertension, Hypotension or Varicose Veins RESPIRATORY: Negative Chronic Obstructive Pulmonary Disease (COPD) GASTROINTESTINAL: Negative Gastrointestinal Disorders, Hepatitis or Colorectal Cancer GENITOURINARY: Negative Genitourinary Disorders, Renal Disease or Prostate Cancer REPRODUCTIVE: Positive Previous Pregnancies; Negative Breast Cancer, Pelvic Inflammatory Disease or Testicular Cancer MUSCULOSKELETAL: Negative Musculoskeletal Disorders or Bone Cancer ENT: Negative Cataracts, Glaucoma, Blind, Macular Degeneration, Ear Infection, Deafness or Eye Prosthesis ENDOCRINE: Negative Endocrine Disorders, Diabetes Mellitus Type 1, Diabetes Mellitus Type 2, Hypoglycemia, [place]'s Syndrome, [place]'s Disease, Hyperthyroidism, Hypothyroidism, Parathyroid Disease, Pituitary Disease, Systemic Lupus Erythematosus, Syndrome of Inappropriate Antidiuretic Hormone (SIADH), Adrenal Disease or Graves' Disease HEMATOLOGIC: Negative Blood Disorders OTHER HISTORY: Negative Hospitalization, Autoimmune Disease, Down Syndrome, Developmental Delay, Shingles, Falls, Blood Transfusions, Blood Transfusion Reaction, Anesthesia Reactions, Organ Transplant, Chemotherapy, Radiation Therapy, Hyperbaric Therapy, MRSA, VRSA, Vancomycin-Resistant Enterococci, Human Immunodeficiency Virus (HIV), Chicken Pox, Measles, Mumps, Rubella (Latvian Measles), Pertussis, Clostridium Difficile, Breast Cancer, Cervical Cancer, Colorectal Cancer, Lung Cancer, Ovarian Cancer, Prostate Cancer or Testicular Cancer Family History FAMILY HISTORY: Negative Family Psychiatric Problems, Family Respiratory Disorders, Family Cardiac Disorders, Family Gastrointestinal Problems, Family Cancer, Family Surgery or Family Anesthesia Reaction Surgical History SURGICAL: Negative Pacemaker, Section or Organ Transplant Social History SMOKING STATUS: Never smoker SECOND HAND EXPOSURE: No ED Exam Narrative Physical exam: Generally patient is alert and in no obvious distress, heart regular rate and rhythm, lungs clear to auscultation equal bilaterally, abdomen is obese soft nontender, chest shows reproducible left upper chest tenderness without crepitance or subcu air Course Course Course Narrative: CXR is ordered for determining the etiology of chest pain. Quality Measures none Orders Category Date Time Status EKG (ED ONLY) *Do not use* NOW Care 05/27/25 17:12 Completed EKG (ED Only) Stat Exams 05/27/25 17:12 Draft XR chest 2V Stat Exams 05/27/25 17:12 Completed CBC Stat Lab 05/27/25 17:40 Completed Comprehensive Metabolic Panel Stat Lab 05/27/25 17:40 Completed HCG,Qualitative Serum Stat Lab 05/27/25 17:40 Completed Troponin I Stat Lab 05/27/25 17:40 Completed Vital Signs Vital signs: Vital Signs Temperature 98.1 F 05/27/25 17:14 Pulse Rate 87 05/27/25 17:14 Respiratory Rate 20 05/27/25 17:14 Blood Pressure 137/70 H 05/27/25 17:14 Pulse Oximetry (%) 98 05/27/25 17:14 Oxygen Delivery Method Room Air 05/27/25 17:14 Chest Pain MDM Narrative MDM Narrative:: Scribe Attestation: 05/27/25 - Jeanette Hubbard am scribing for and in the presence of Dr. Stroud. 2 separate EKGs with the first being at 4:26 PM shows normal sinus rhythm at rate of 83 with an incomplete right bundle branch block. No ischemic changes. Second EKG done at 5:17 PM shows normal sinus rhythm at rate of 80 with an incomplete right bundle branch block and without ischemic change. Troponin is not elevated. Chest x-ray is normal. test was positive. Last menstrual cycle was approximately 2-1/2 weeks ago. This is a newly diagnosed . Patient may take Tylenol for pain. Follow-up with her doctor as needed for further treatment and evaluation. Patient data External records reviewed:: [facility] previous records (Per chart review, patient was seen here on 04/30/25 for URI.) Clinical information provided by:: patient Social determinants that could affect healthcare access:: none Patient has the following chronic illnesses:: none How is presenting disease/condition affected by chronic disease/condition?: no chronic disease Evaluation data The following diagnostics were reviewed and interpreted by me:: lab results, radiology exam(s) and EKG tracing(s) Lab and/or radiology exams considered but not ordered:: none Interpretation Summary: [facility] Report Signed Patient: PAMELA RICHARDSON Record#: [id number] Birthdate: 1995 Age/Sex: 29 / F Location: [facility] Attending Dr: Ordering Physician: Margot SCALES)David NP Date of Service: 05/27/25 Procedure(s): XR chest 2V Accession Number(s): [id number] cc: Margot SCALES)David NP; Garland Virk MD~ EXAMINATION: PA lateral chest 2 views TECHNIQUE: Upright PA lateral chest 2 views Date and time: May 27, 2025, 1727 hours INDICATION: Chest pain beginning 2 days ago. FINDINGS: Normal heart size Lungs are clear. Intact osseous structures IMPRESSION: No active disease Dictated By: Garland Virk MD Signed By: <Electronically signed by Garland Virk MD in OV> 05/27/25 9938 Medications / Prescriptions Medications or Prescriptions considered but not ordered:: none Medication administrations:: none Consultations Consultation(s) initiated? (list below): No Diagnosis Chest Pain Differential Diagnosis: other (See MDM) Most likely diagnosis given after review of the tests above:: see clinical impression below Admission Indicated Admission indicated?: not indicated Admission Request Was there a request for admission?: No Disposition Plan Disposition Plan: Discharge Discharge Attestation Discharge Attestation: The patient and all family members were given an opportunity to ask questions and understood the discharge instructions. Discharge instructions specifically effects, indications for sooner follow up or return to the emergency department, and the expected course of current diagnosis. Patient condition: Stable Discharge Plan Plan Patient Disposition: HOME (Self Care) Prescriptions/Referrals Prescriptions/Med Rec: No Action albuterol sulfate [Ventolin HFA] 90 mcg/actuation HFA aerosol inhaler 2 puff inhalation Q6H PRN (Reason: shortness of breath or wheezing) Qty: 18 0 RF benzonatate 100 mg capsule 100 mg PO TID Qty: 14 0RF Vitamin 27 mg iron- 800 mcg Tablet 1 tab PO QDAY ibuprofen 800 mg tablet 800 mg PO TID PRN (Reason: pain) Qty: 30 0RF cephalexin 500 mg capsule 500 mg PO TID Qty: 30 0RF ondansetron 4 mg tablet,disintegrating 4 mg PO Q8H Qty: 20 0RF hydrocodone-acetaminophen 5-325 mg tablet 1 tab PO Q6H MDD max 4 tabs per day PRN (Reason: pain) Qty: 12 0RF Referrals: Jacquie Finney FNP-C [Primary Care Provider] - In 1 week Problem List Clinical Impression: Chest pain, Patient/Caregiver Discharge Instructions Education Materials: First Trimester, ED Chest Pain, Uncertain Cause Additional Instructions: Take Tylenol for pain. Follow-up with your physician for further treatment and evaluation as needed. Print Language: Faroese Stand Alone Forms: [employer] Award Info., Patient Portal Info Letter
== END 2025-05-27 19:49 | disposition home or self-care (01) ==
PROVIDERS: Nurse Practitioner Primary Care; Emergency Provider Emergency Medicine
DX: O99.891 Other specified diseases and conditions complicating pregnancy (principal); R07.9 Chest pain, unspecified; I45.10 Unspecified right bundle-branch block; Z3A.00 Weeks of gestation of pregnancy not specified
CPT/HCPCS: 36415; 71046; 80053; 84484; 84703; 85025; 93005; 99283